=== PATIENT | male | born 1975 ===

== ENCOUNTER → 2024-11-29 09:53 | Outpatient (BNVA) | payer OTHER, SELFPAY | PROVIDERS: PCP Nurse Practitioner Family; Visit Provider Psychiatry & Neurology Neurology | DX: R41.89 Other symptoms and signs involving cognitive functions and awareness (principal); R41.840 Attention and concentration deficit; U09.9 Post COVID-19 condition, unspecified | CPT/HCPCS: 36415; 82306; 82310; 82607; 82746; 83735; 83921 ==